=== PATIENT | female | born 1965 | race Two or more races ===

== ENCOUNTER 2017-02-06 07:45 | Day surgery (SDC) | payer BC ==
[2017-02-01 14:44] VITALS: BMI 32.3
[~2017-02-06 07:45] MED LIST: LACTATED RINGERS 1,000 ML IV SCH; LIDOCAINE 1% 20 ML VIAL (10MG/ML) FOR IV START INTRADERMA PRN
[2017-02-06 08:14] VITALS: RESP 16; TEMP 97.5
[2017-02-06] MEDS ORDERED: ONDANSETRON 4 MG/2 ML VIAL IVP ONE (08:15)
[2017-02-06 08:24] LABS: Glucose,Whole Blood 157 mg/dL (75-99)
[2017-02-06] MEDS ORDERED: PROPOFOL 10 MG/ML 20 ML VIAL IV ONE (09:05)
--- NOTE | 2017-02-06 09:50 | P.PCN ---
Date of Procedure: 02/06/17 Preoperative Diagnosis: Postoperative Diagnosis: Procedure(s) Performed: Procedure: Colonoscopy and polypectomy. Preoperative diagnosis: Hemoccult-positive stools. Postoperative diagnosis: 1. Two polyps snared. 2. Sigmoid diverticulosis. 3. Low-grade internal hemorrhoids. Preparation: HalfLytely prep. Sedation: Was provided by anesthesia. Brief clinical history: The patient is a 51-year-old female who is referred for this evaluation because of finding of Hemoccult positive stools. There is family history of rectal cancer in her father. She has no abdominal complaints , or overt bleeding or anemia. This would be her first colonoscopy. Procedure: With the patient on her left lateral decubitus position and after informed consent and adequate sedation, the perianal area was inspected and it did not show any fissures or fistulas. There were no masses felt on digital rectal examination. The Olympus CFQ 160L video colonoscope was then inserted in the rectum in the usual fashion and advanced to the cecum. There were multiple diverticular orifices seen scattered in the sigmoid with no evidence of acute diverticulitis or strictures. There was a right colon polyp which was multilobed and flat measuring around 3 cm in greatest dimension, which I removed piecemeal with good hemostasis, and there was a medium-sized polyp, in the distal sigmoid, which I snared and retrieved by suctioning it to the tip of the endoscope and withdrawing the endoscope and restarting the exam. I retroflexed the endoscope in the rectum before the endoscope was withdrawn. Low -grade internal hemorrhoids were noted with no bleeding. The patient tolerated the procedure well. Plan: The patient was reassured. I discussed with her mother as well. I recommended dietary measures and repeat exam in 3 years before going to a 5- year schedule in light of her family history and finding of polyps today. She will follow-up with you as planned. Implants: Indications for Procedure: Operative Findings: Description of Procedure:
[2017-02-06 10:09] VITALS: BP 120/80; PULSE 82
== END 2017-02-06 10:21 | disposition home or self-care (01) ==
LOC: ORWHC2ENDO 07:45
DX: D12.5 Benign neoplasm of sigmoid colon (principal); D12.2 Benign neoplasm of ascending colon; K57.30 Diverticulosis of large intestine without perforation or abscess without bleeding; K64.8 Other hemorrhoids; Z80.0 Family history of malignant neoplasm of digestive organs; R19.5 Other fecal abnormalities; E11.9 Type 2 diabetes mellitus without complications; E78.5 Hyperlipidemia, unspecified; Z79.899 Other long term (current) drug therapy; Z79.84 Long term (current) use of oral hypoglycemic drugs; Z88.8 Allergy status to other drugs, medicaments and biological substances; Z91.048 Other nonmedicinal substance allergy status; Z72.0 Tobacco use
CPT/HCPCS: 88305; 45385; J2405; J2704